=== PATIENT | male | born 1980 ===

== ENCOUNTER 2017-02-08 15:07 | Emergency (ER) | payer OTHER ==
[2017-02-08] MEDS ORDERED: Sodium Chloride 0.9% 1,000 ML IV ONE (15:31)
[2017-02-08] MEDS ORDERED: Sodium Chloride 0.9% 1,000 ML ONE (15:39)
[2017-02-08 15:47] LABS: BASO # 0.1 K/uL (0.0-0.2); BASO % 0.6 % (0.0-2.0); EOS # 0.2 K/uL (0.0-0.7); EOS % 1.6 % (0.0-4.0); HEMATOCRIT 43.1 % (35.0-51.0); LYMPH # 2.1 K/uL (1.0-4.3); LYMPH % 22.2 % (20.0-40.0); MEAN CELL VOLUME 84.9 fL (80.0-94.0); MEAN CORPUSCULAR HEMOGLOBIN 27.9 pg (27.0-31.0); MEAN CORPUSCULAR HGB CONC 32.8 g/dL (33.0-37.0); MEAN PLATELET VOLUME 9.2 fL (7.2-11.7); MONO # 0.9 K/uL (0.0-0.8); MONO % 9.7 % (0.0-10.0); RED CELL DISTRIBUTION WIDTH 12.6 % (11.5-14.5); WHITE BLOOD COUNT 9.7 K/uL (4.8-10.8)
[2017-02-08 16:09] LABS: RBC URINE 2 /hpf (0-3); URINE BILIRUBIN NEGATIVE (NEGATIVE); URINE BLOOD 2+ (NEGATIVE); URINE COLOR Straw (YELLOW); URINE GLUCOSE (UA) NORMAL (Normal); URINE KETONE NEGATIVE (NEGATIVE); URINE LEUKOCYTE ESTERASE NEG Leu/uL (Negative); URINE PROTEIN NEGATIVE (NEGATIVE); URINE UROBILINOGEN NORMAL mg/dL (0.2-1.0); WBC URINE 1 /hpf (0-5)
[2017-02-08 16:11] LABS: CHLORIDE 99 mmol/L (98-107); POTASSIUM 3.8 mmol/L (3.6-5.2); SODIUM 138 mmol/L (132-148)
[2017-02-08 16:13] LABS: ALB/GLOB RATIO 1.2 (1.0-2.1); AST/SGOT 31 U/L (17-59); BILIRUBIN,TOTAL 0.5 mg/dL (0.2-1.3); CARBON DIOXIDE 25 mmol/L (22-30); GFR AFRICAN-AMERICAN > 60; TOTAL PROTEIN 7.5 g/dL (6.3-8.3)
[2017-02-08 16:14] LABS: ALKALINE PHOSPHATASE 113 U/L (38-126); ALT/SGPT 44 U/L (21-72); BLOOD UREA NITROGEN 13 mg/dL (9-20); CALCIUM 9.3 mg/dl (8.6-10.4); GLUCOSE,RANDOM 100 mg/dL (75-110)
--- NOTE | 2017-02-08 16:16 | CT ---
PROCEDURE: CT Abdomen and Pelvis without intravenous contrast HISTORY: L flank, LLQ pain, r/o kidney stone COMPARISON: None. TECHNIQUE: Without contrast.. Contrast Dose: 0 Radiation dose: Total exam DLP = 778.79 mGy-cm. This CT exam was performed using one or more of the following dose reduction techniques: Automated exposure control, adjustment of the mA and/or kV according to patient size, and/or use of iterative reconstruction technique. FINDINGS: LOWER THORAX: Unremarkable. LIVER: Unremarkable. No gross lesion or ductal dilatation. GALLBLADDER AND BILE DUCTS: Unremarkable. PANCREAS: Unremarkable. No gross lesion or ductal dilatation. SPLEEN: Unremarkable. ADRENALS: Unremarkable. No mass. KIDNEYS AND URETERS: Unremarkable. No hydronephrosis. No solid mass. No renal or ureteral calculus. VASCULATURE: Unremarkable. No aortic aneurysm. BOWEL: Unremarkable. No obstruction. No gross mural thickening. APPENDIX: Unremarkable. Normal appendix. PERITONEUM: Unremarkable. No free fluid. No free air. LYMPH NODES: Unremarkable. No enlarged lymph nodes. BLADDER: Unremarkable. REPRODUCTIVE: Unremarkable prostate BONES: No acute fracture. OTHER FINDINGS: None. IMPRESSION: Unremarkable non contrast enhanced CT of the abdomen and pelvis. No evidence of urinary calculus or urinary tract obstruction.
--- NOTE | 2017-02-08 16:27 | C.PDOC ---
History Of Present Illness Patient is a 36 year old male who presents to the ER with a complaint of left flank pain radiating to the LLQ for 3 days. Patient is also complaining of right heel pain. Denies fever, vomiting, diarrhea, dysuria and hematuria. Time Seen by Provider: 02/08/17 15:28 Chief Complaint (Nursing): Abdominal Pain History Per: Patient History/Exam Limitations: no limitations Onset/Duration Of Symptoms: Days (3) Current Symptoms Are (Timing): Still Present Location Of Pain/Discomfort: Other (Left flank) Radiation Of Pain To:: Other (LLQ) Quality Of Discomfort: Unable To Describe Associated Symptoms: denies: Fever, Vomiting, Diarrhea, Urinary Symptoms ( Dysuria, Hematuria) Exacerbating Factors: None Alleviating Factors: None Recent travel outside of the [place]: No Past Medical History Reviewed: Historical Data, Nursing Documentation, Vital Signs Vital Signs: Last Vital Signs Temp 97.7 F 02/08/17 15:12 Pulse 76 02/08/17 15:12 Resp 20 02/08/17 15:12 BP 147/91 H 02/08/17 15:12 Pulse Ox 98 02/08/17 16:48 - Medical History PMH: Hypercholesterolemia Surgical History: No Surg Hx Family History: States: Unknown Family Hx - Social History Hx Alcohol Use: No Hx Substance Use: No - Immunization History Hx Tetanus Toxoid Vaccination: No Hx Influenza Vaccination: No Hx Pneumococcal Vaccination: No Review Of Systems Except As Marked, All Systems Reviewed And Found Negative. Gastrointestinal: Positive for: Abdominal Pain (LLQ) Musculoskeletal: Positive for: Back Pain (Left flank), Foot Pain (Right heel) Physical Exam - Physical Exam Appears: Non-toxic, Other (Mild-moderate pain) Skin: Normal Color, Warm, Diaphoretic (Mildly) Head: Atraumatic, Normacephalic Oral Mucosa: Moist Chest: Symmetrical, No Tenderness Cardiovascular: Rhythm Regular, No Murmur Respiratory: Normal Breath Sounds, No Rales, No Rhonchi, No Wheezing Gastrointestinal/Abdominal: Soft, Tenderness (Mild to LLQ), No Guarding, No Rebound Back: CVA Tenderness (Mild, left) Neurological/Psych: Oriented x3, Normal Speech, Normal Cognition ED Course And Treatment - Laboratory Results Result Diagrams: 02/08/17 15:39 02/08/17 15:39 O2 Sat by Pulse Oximetry: 98 (Room air) Pulse Ox Interpretation: Normal - CT Scan/US ct abd/pelvis Other Rad Studies (CT/US): Read By Radiologist, Radiology Report Reviewed CT/US Interpretation: Accession No. : [id number]. Patient Name / ID : ROD MACDONALD I / [id number]. Exam Date : 02/08/2017 15:53:50 ( Approved ). Study Comment : Sex / Age : M / 36Y. Creator : Armen Levy MD. Dictator : Armen Levy MD. Bread Oven Operator : Youtuber : Armen Levy MD. Approver2 : Report Date : 02/08/2017 16:15:15. My Comment : . PROCEDURE : CT Abdomen and Pelvis without intravenous contrast. HISTORY: L flank, LLQ pain, r/o kidney stone. COMPARISON: None. TECHNIQUE: Without contrast.. Contrast Dose: 0. Radiation dose: Total exam DLP = 778.79 mGy-cm. This CT exam was performed using one or more of the following dose reduction techniques : Automated exposure control, adjustment of the mA and/or kV according to patient size, and/or use of iterative reconstruction technique. FINDINGS: LOWER THORAX: Unremarkable. LIVER: Unremarkable. No gross lesion or ductal dilatation. GALLBLADDER AND BILE DUCTS: Unremarkable. PANCREAS: Unremarkable. No gross lesion or ductal dilatation. SPLEEN: Unremarkable. ADRENALS: Unremarkable. No mass. KIDNEYS AND URETERS: Unremarkable. No hydronephrosis. No solid mass. No renal or ureteral calculus. VASCULATURE: Unremarkable. No aortic aneurysm. BOWEL: Unremarkable. No obstruction. No gross mural thickening. APPENDIX: Unremarkable. Normal appendix. PERITONEUM: Unremarkable. No free fluid. No free air. LYMPH NODES: Unremarkable. No enlarged lymph nodes. BLADDER: Unremarkable. REPRODUCTIVE: Unremarkable prostate. BONES: No acute fracture. OTHER FINDINGS: None. IMPRESSION: Unremarkable non contrast enhanced CT of the abdomen and pelvis. No evidence of urinary calculus or urinary tract obstruction. Progress Note: Blood work, urinalysis right foot x-ray ordered. Toradol and IV fluids administered. Disposition Counseled Patient/Family Regarding: Studies Performed, Diagnosis, Need For Followup, Rx Given - Disposition Referrals: Malaika Zelaya MD [Staff Provider] - Barry Carlson MD [Staff Provider] - [facility] [Outside] Disposition: HOME/ ROUTINE Disposition Time: 17:10 Condition: STABLE Additional Instructions: FOLLOW UP WITH YOUR DOCTOR IN 1-2 DAYS, AND WITH UROLOGY WITHIN 1 WEEK IF SYMPTOMS PERSIST FOLLOW UP WITH PODIATRY WITHIN 1 WEEK FOR FURTHER EVALUATION OF HEEL SPUR USE MEDICATIONS DIRECTED RETURN TO ER IF SYMPTOMS WORSEN Prescriptions: Hydrocodone/Acetaminophen [Hydrocodon-Acetaminophen 5-325] 1 each PO Q6 PRN #12 tablet PRN Reason: Pain, Moderate (4-7) Tamsulosin [Flomax] 0.4 mg PO DAILY #5 cap Instructions: Heel Spur (ED), Renal Colic (ED) Print Language: WELSH - POA Present On Arrival: None - Clinical Impression Clinical Impression: Heel spur, Renal colic on left side, Microscopic hematuria - Scribe Statement The provider has reviewed the documentation as recorded by the Scribe Alli Singh All medical record entries made by the Scribe were at my direction and personally dictated by me. I have reviewed the chart and agree that the record accurately reflects my personal performance of the history, physical exam, medical decision making, and the department course for this patient. I have also personally directed, reviewed, and agree with the discharge instructions and disposition.
[2017-02-08 17:19] VITALS: BP 125/70; PULSE 87; RESP 18; TEMP 98.3; O2SAT 95
--- NOTE | 2017-02-08 17:19 | RAD ---
PROCEDURE: Right Foot Radiographs. HISTORY: RIGHT HEEL/POSTERIOR FOOT PAIN COMPARISON: None. FINDINGS: BONES: No fracture. Small plantar calcaneal spur. JOINTS: Normal. SOFT TISSUES: Normal. OTHER FINDINGS: None. IMPRESSION: Small plantar calcaneal spur. Otherwise unremarkable.
== END 2017-02-08 17:20 | disposition home or self-care (01) ==
LOC: C.ER 15:07
DX: N23 Unspecified renal colic (principal); R31.29 Other microscopic hematuria; M77.31 Calcaneal spur, right foot
CPT/HCPCS: 73630; 74176; 80053; 81001; 83690; 85025; 87086; 96361; 96374; 99283; J1885; J7040